=== PATIENT | female | born 1955 | race Caucasian/White ===

== ENCOUNTER → 2025-03-20 14:04 | Outpatient (BNVA) | payer MEDICARE, SELFPAY | PROVIDERS: Visit Provider Student in an Organized Health Care Education/Training Program | DX: S52.501A Unspecified fracture of the lower end of right radius, initial encounter for closed fracture (principal); S52.611A Displaced fracture of right ulna styloid process, initial encounter for closed fracture; W19.XXXA Unspecified fall, initial encounter | CPT/HCPCS: 73110; 99204 ==

== ENCOUNTER 2025-03-21 09:26 | Day surgery (SDC) | payer MEDICARE, SELFPAY ==
[2025-03-21] VITALS (8 sets, daily range): BP systolic 113–144; BP diastolic 49–90; PULSE 74–90; RESP 16–18; TEMP 36.1–36.6; O2SAT 90–100; BMI 27.1
--- NOTE | 2025-03-21 10:59 | ANES.PREANE2 ---
Pre-Anesthetic Assessment Height/Weight: Height 1.52 m Weight 63.049 kg Temp Pulse Resp BP Pulse Ox O2 Del Method 97.9 F 90 18 136/85 97 Room Air 03/21/25 10:32 03/21/25 10:32 03/21/25 10:32 03/21/25 10:32 03/21/25 10:32 03/21/25 10:37 Operation Date: 03/21/25 12:05 Proposed Procedures p ORIF Distal Radius(Right) - Ren Reuben, DO Was Beta Ephraim taken within 24 hours: N/A Last intake: Intake Last Liquid Date 03/20/25 Last Liquid Time 22:00 Last Solid Date 03/20/25 Last Solid Time 16:00 Social No alcohol and No tobacco Exam alert, oriented x 3, clear to auscultation bilaterally and regular rate & rhythm Airway Submandibular: within normal limits Cervical ROM: within normal limits Mallampati: Class I CV/HEM Congestive Heart Failure Metabolic Thyroid Disease Anesthetic Plan ASA status: 3 Anesthesia: General and Regional (specify below) (Right Suprclavicular Nv Blk) Medications/Allergies Home Medications ?Medication ?Instructions ?Recorded ?Confirmed ?Last Taken ?Type cetirizine 10 mg capsule (All Day 10 mg PO DAILY PRN allergies 03/20/25 03/20/25 03/20/25 History Allergy (cetirizine)) furosemide 20 mg tablet (Lasix) 20 mg PO BID 03/20/25 03/20/25 03/20/25 History levothyroxine 50 mcg capsule 50 mcg PO DAILY 03/20/25 03/20/25 03/20/25 History Allergies Allergy/AdvReac Type Severity Reaction Status Date / Time clindamycin Allergy Intermediate rash Verified 03/20/25 18:02 [facility] Anesthesia Social History Smoking and tobacco/nicotine status: never used tobacco/nicotine
--- NOTE | 2025-03-21 11:01 | W.PM.OPSUD ---
Surgery/Procedure H&P Update DATE OF PROCEDURE: March 21, 2025 DATE H&P PERFORMED: 03/20/25 H&P UPDATE INFORMATION: I have reviewed H&P completed within last 30 days, I have examined patient prior to procedure and No changes to prior documentation PREOP DIAGNOSIS: Displaced right distal radius intra-articular PRIMARY INDICATION FOR PROCEDURE: Displaced and angulated right distal radius intra-articular fracture PLANNED PROCEDURE: Operation Date: 03/21/25 12:05 Proposed Procedures p ORIF Distal Radius(Right) - Ren Alexis DO
[2025-03-21] MEDS: acetaminophen 1,000 MG/100 ML PIGGYBACK 400 MG IV (11:03)
--- NOTE | 2025-03-21 11:25 | ANES.PROC ---
Anesthesia Procedures Procedure/Date: 03/21/25 Right Supraclavicular block Nerve Block ^: Nerve Block 1: Main Anesthesia: general anesthesia Time Out Performed: Yes Consent: requested by attending/covering physician, from patient, risks and benefits reviewed and patient agrees to proceed Laterality: Right Nerve block location: supraclavicular Anesthesia monitors applied: pulse oximetry, EKG, BP cuff and oxygen Nerve block position: semi sitting Anesthetic Used: ropivicaine 0.5% and with decadron (4 mg) Amount of anesthesia used (mL): 20 Ultrasound used to: recognize landmarks, visualize and ID brachial plexus and in supraclavicular region Nerve Stimulator Used?: Yes Interscalene/Femoral BLK: 4 stimuplex 21 g needle used for position and inplane approach and no vascular puncture identified Injection: neg aspiration of heme Patient Tolerated Procedure: well and no complications Complications: none
--- NOTE | 2025-03-21 11:30 | PC.NURSE ---
1115, timeout performed by fer. Using ultrasound guidance 20 ml of ropivicaine injected to right shoulder. images obtained, patient tolerated well
[2025-03-21] MEDS: ceFAZolin 2,000 MG in sodium chloride 0.9% (plus) 50 ML 100 MG IV (11:45)
--- NOTE | 2025-03-21 13:17 | ANE.PACU2 ---
Inpatient post-anesthesia follow up: Airway intact: Yes Vital signs: Temperature 97.0 F Pulse Rate 74 Respiratory Rate 16 Blood Pressure 119/49 Pulse Oximetry 100 Oxygen Delivery Me thod Simple Mask Oxygen Flow Rate 8 Fraction of Inspir ed Oxygen Hydration adequate: Yes Nausea and vomiting: No Pain level: 1
--- NOTE | 2025-03-21 13:18 | P.PCN_ITS ---
PACU note Narrative: Patient is a 69-year-old female who just underwent a right distal radius ORIF. Patient transferred to PACU in stable condition. Pain is well controlled. Dressing on hand is dry and in place. Patient's fingers are warm and well- perfused. normal cap refill under 2 seconds. Unable to assess any further motor or sensory function in right arm due to residual block Exam: awake Disposition: discharged
--- NOTE | 2025-03-21 14:45 | P.BOP_ITS ---
Date of Procedure: 03/21/2025 Surgeon: Ren Alexis DO Clinical Trials Nurse(s): None Procedure(s) performed: Right Distal Radius Open Reduction and internal fixation (3 part intra articular) Findings of the procedure(s): Procedure went as planned without issues or complications, volar splint applied and taken to recovery in stable condition Estimated blood loss: 10mL Specimen(s) removed: none Post-operative diagnosis: Right distal radius comminuted, displaced angulated 3 part intraarticular fracture
--- NOTE | 2025-03-21 15:00 | PM.OP ---
Operative Report Date of procedure: March 21, 2025 Surgeon: Ren Alexis DO Procedure: Preop Diagnosis ?Right?distal?radius fracture ? Procedure: Post-op diagnosis: Same, 3 part intra-articular Procedure done: Right?distal?radius open reduction internal fixation, 3-part intra-articular Implants: ?Arthrex Right 3-hole narrow volar locking plate Combination of locking and nonlocking screws 2.7 mm?distal Combination of locking and nonlocking screws 3.5 mm proximal Surgeon: Ren Alexis DO Anesthesia: General and nerve Block (Regional) Estimated blood loss: 10 mL Tourniquet time: 35 minutes IV fluids: 800mL Complications: None Findings: See operative report narrative Condition: stable Disposition: same day Brief History: Patient is a 69-year-old female who presented to my office for a [id number] Right?distal?radius fracture.? Patient has significant comminution and shortening as well as dorsal angulation patient active and at this point time through shared decision making patient like to proceed with a Right?distal?radius ORIF.? We had a detailed discussion in the office about nonoperative and operative intervention.? At this point time I feel through shared decision? best option would be open reduction internal fixation she is active and already has a considerable deformity?? as result through shared decision making patient would like to proceed with ORIF Right?distal?radius fracture.? Detail the risk benefits complication alternatives to treatment option.? Understanding risk for surgery patient elects to proceed with surgical intervention.? All questions been answered at this time. Procedure: Patient seen and evaluated in the preoperative holding area.? Consent reviewed and signed with patient.? Correct extremities were marked and consent was reviewed and signed.? Patient was seen and evaluated by anesthesia department.? Underwent regional anesthesia. Once cleared for surgery pt was taken back to the operative suite.? Patient was then transported into the operative suite and kept on the OR gurney, all bony prominences well-padded patient was appropriate secured to bed in supine position.? An armboard was applied to the Right upper extremity.? The Right upper extremity had a nonsterile tourniquet applied.? Patient subsequently was then prepped and draped in standard orthopedic fashion she underwent anesthesia per the anesthesia department.? A final timeout was performed.? Patient received appropriate preoperative antibiotics. Esmarch was used exsanguinate the Right upper extremity and tourniquet was insufflated to 250 mmHg. A standard modified FCR volar approach was performed to the Right?distal?radius.? Sharp scalpel incision through skin and subcutaneous tissue.? I then switched to Littler dissection scissors identify the FCR tendon releases out of the sheath both proximally and?distally mobilized the tendon ulnarly and then subsequently incised the floor of the FCR tendon sheath with care to just incise the floor.? I then bluntly sweep the FPL tendon muscle belly ulnarly and placed blunt self-retaining retractor.? At this point time I direct visualization of the pronator quadratus which was incised in standard L fashion off the?radial and?distal?border in the?distal?radius and fracture site was scraped clean of interposed muscle belly.? I then identified the 3 part intra-articular?distal?radius fracture.? This was subsequently opened above and freed of interposing muscle belly as well as periosteum and fracture hematoma.? I did have to utilize my [place] which was placed through the fracture pattern and disengage the fracture and performed manual manipulation and anatomic reduction of the?distal?radius fracture.? ?Once satisfied with reduction and had appropriate anatomic reduction of the volar cortex.? This was confirmed with mini C arm in multiple orthogonal imaging.? At this point time? I selected a Arthrex anatomic?distal?radius plate utilizing a narrow 3-hole plate which would have appropriate spread?distally.? This was then placed up to the?distal?radius while maintaining my reduction, pins were placed?distally and proximally to confirm appropriate placement of the plate along the?distal?radius.? Minor adjustments were made and once I was satisfied I then subsequently drilled a bicortical 3.5 screw proximally in the oblong hole to allow for appropriate sliding of the?distal?radius plate appropriately to perfect position on the?distal?radius.? This had excellent fixation and purchase and brought the plate to bone.? While maintaining my reduction I then confirmed in multiple orthogonal imaging that my plate was in appropriate position.? Once satisfied with my position I then subsequently placed the peek targeting guide on the?distal?locking screws with Arthrex.? The locking guide was then subsequently loaded and I subsequently drilled and placed a fully threaded cortical screw to compress the plate to bone for the?distal?fracture fragment.? This was performed with plan to then remove this and placed a shorter locking screw had bicortical fixation with excellent purchase and appropriate reduction of my volar tilt and bringing plate to bone of the?distal?fragment and plate.? Once I was satisfied with my plate position as well as reduction of the?distal?radius which was confirmed on AP oblique and lateral imaging I then subsequently drilled measured and placed 3 locking screws around this cortical screw.? Then I subsequently removed the cortical screw and placed a shorter locking screw that did not penetrate the dorsal cortex.?? This completed my?distal?fixation.? I did utilize mini C arm to confirm appropriate placement of the screws these were all within the?distal?radius and no joint involvement within the?radiocarpal joint or the DRUJ.? These had appropriate subchondral support and maintenance of reduction and fixation of the?distal?radius fracture.? ?I then turned my attention proximally and then I screwed in the locking guides for my final to screws proximally these were then subsequently drilled measured and appropriate length locking screws were then placed proximally with excellent fixation and locking technology into the plate.? This completed my construct.? The peek guide was subsequently removed and final imaging of the Right?distal?radius open reduction internal fixation was taken of AP lateral as well and is orthogonal imaging.? I then took a inclination view which showed my?radial styloid screw was out of the penetration of the joint.? All my?distal?screws were appropriate length did not penetrate dorsal cortex and did not penetrate the joint.? This completed my fixation.? Smooth wrist range of motion was then noted with no evidence of clicking. Wrist was then taken through pronation supination and stressed the DRUJ which was found to be stable.? The wound was then thoroughly irrigated.? Tourniquet was then subsequently deflated.? Hemostasis satisfactory with bipolar electrocautery.? I then subsequently placed interrupted 3-0 Vicryl sutures for subcutaneous tissue and then subsequently placed a nylon the skin for closure.? Incision was then dressed with Xeroform 4 x 4's Kerlix cast padding and a volar Ortho-Glass splint was then applied with Reynaldo wrap and placed in a sling.? Disposition: Patient taken to PACU in stable condition recovering well receive appropriate discharge instructions as well as pain medication postoperatively.? Maintain splint until follow-up.? Nonweightbearing to operative upper extremity We will follow-up with Ortho in the office in 2 weeks.? If any questions or concerns feel free to contact the office.
== END 2025-03-21 14:10 | disposition home or self-care (01) ==
PROVIDERS: PCP Nurse Practitioner Family; Visit Provider Student in an Organized Health Care Education/Training Program
PROC: (CPT 25609; principal; 2025-03-21 11:55)
DX: S52.571A Other intraarticular fracture of lower end of right radius, initial encounter for closed fracture (principal); X58.XXXA Exposure to other specified factors, initial encounter; I50.9 Heart failure, unspecified; E07.9 Disorder of thyroid, unspecified
CPT/HCPCS: 25609; 73100; 76000; C1713; J0131; J0690; J1100; J2371; J2405; J2704; J2795; J3010; J7030; J9999

== ENCOUNTER → 2025-04-03 14:24 | Outpatient (BNVA) | payer MEDICARE, SELFPAY | PROVIDERS: PCP Nurse Practitioner Family; Visit Provider Physician Assistant | DX: Z98.890 Other specified postprocedural states (principal); Z87.81 Personal history of (healed) traumatic fracture | CPT/HCPCS: 73110 ==

== ENCOUNTER → 2025-04-17 13:16 | Outpatient (BNVA) | payer MEDICARE, SELFPAY | PROVIDERS: Visit Provider Physician Assistant | DX: S52.501A Unspecified fracture of the lower end of right radius, initial encounter for closed fracture (principal); Z98.890 Other specified postprocedural states; X58.XXXA Exposure to other specified factors, initial encounter | CPT/HCPCS: 73110 ==

== ENCOUNTER 2025-04-17 14:36 | Outpatient (CLI) | payer MEDICARE, SELFPAY | END 2025-04-17 14:37 | disposition home or self-care (01) | LOC: SPT 14:36 | PROVIDERS: Visit Provider Physician Assistant | DX: Z47.89 Encounter for other orthopedic aftercare (principal); Z98.890 Other specified postprocedural states; S52.501D Unspecified fracture of the lower end of right radius, subsequent encounter for closed fracture with routine healing; X58.XXXD Exposure to other specified factors, subsequent encounter | CPT/HCPCS: L3908 ==

== ENCOUNTER 2025-05-13 08:47 | Outpatient (RCR) | payer MEDICARE, SELFPAY | END 2025-06-09 23:59 | disposition home or self-care (01) | LOC: MPT 08:47 | PROVIDERS: Visit Provider Physician Assistant | DX: S52.613D Displaced fracture of unspecified ulna styloid process, subsequent encounter for closed fracture with routine healing (principal); X58.XXXD Exposure to other specified factors, subsequent encounter | CPT/HCPCS: 97161 ==